=== PATIENT | female | born 1950 | race Caucasian/White ===

== ENCOUNTER 2021-01-24 07:36 | Day surgery (SDC) | payer MEDICARE, BC ==
[2021-01-22 11:43] LABS: COVID AG,FIA SOURCE NASOPHARYNGEAL
[~2021-01-24] VITALS: Ht 165.1 cm; Wt 113.6 kg
[~2021-01-24 07:36] MED LIST: ATOR40TA28 PO; BIMA12.5OS OU; BUPR-93 PO; CELE200 PO; CHOL500013 PO; FERR236T3 PO; FEXO180T94 PO; FLUO-191 PO; KETOROLAC TROMETHAMINE 0.5% 5 ML OPHTHALMIC SOLUTION ONE; LEVO100 PO; LIFI1DRO OU; LOSA25TA21 PO; MOXIFLOXACIN HCL 0.5% 3 ML OPHTHALMIC SOLUTION ONE; OMEP20 PO; PHENYLEPHRINE HCL 2.5% 2 ML OPHTHALMIC SOLUTION ONE; RINGERS SOLUTION,LACTATED 500 ML IV ONE; TIMO.5OS OS; TRIA1CAP6 PO; TROPICAMIDE 1% 2 ML OPHTHALMIC SOLUTION ONE
[2021-01-24] MEDS ORDERED: LIDOCAINE/PF 1% 2 ML VIAL IM ONE (07:37)
[2021-01-24] MEDS ORDERED: BALANCED SALT 15 ML OPHTHALMIC IRRIG.SOLN OU ONE (07:37)
[2021-01-24] MEDS ORDERED: HYALURONATE SOD/CHONDROITIN SOD 0.5 ML VIAL IO ONE (07:37)
[2021-01-24] MEDS ORDERED: POVIDONE-IODINE 10% 15 ML SOLUTION UD TP ONE (07:37)
[2021-01-24] MEDS ORDERED: EPINEPHrine 1:1,000 [1 MG/ML] AMP IM ONE (07:37)
[2021-01-24] MEDS ORDERED: TETRACAINE HCL/PF 0.5% 4 ML OPHTHALMIC SOLUTION OU ONE (07:37)
[2021-01-24] MEDS: TROPICAMIDE 1% 2 ML OPHTHALMIC SOLUTION OD SCH ×3 (09:23→09:37)
[2021-01-24] MEDS: KETOROLAC TROMETHAMINE 0.5% 5 ML OPHTHALMIC SOLUTION OD SCH ×3 (09:23→09:37)
[2021-01-24] MEDS: MOXIFLOXACIN HCL 0.5% 3 ML OPHTHALMIC SOLUTION OD SCH ×3 (09:23→09:37)
[2021-01-24] MEDS: PHENYLEPHRINE HCL 2.5% 2 ML OPHTHALMIC SOLUTION OD SCH ×3 (09:23→09:37)
[2021-01-24] MEDS ORDERED: FentaNYL CITRATE PF 100 MCG/2 ML VIAL IVP ONE (12:00)
[2021-01-24] MEDS ORDERED: MIDAZOLAM HCL 2 MG/2 ML VIAL IVP ONE (12:00)
== END 2021-01-24 11:00 | disposition home or self-care (01) ==
LOC: SURGERY 07:36
PROVIDERS: ATTEND Ophthalmology
DX: H25.11 Age-related nuclear cataract, right eye (principal); Z20.822 Contact with and (suspected) exposure to COVID-19; I10 Essential (primary) hypertension; E03.9 Hypothyroidism, unspecified; G47.33 Obstructive sleep apnea (adult) (pediatric); E66.01 Morbid (severe) obesity due to excess calories; Z68.41 Body mass index [BMI] 40.0-44.9, adult; Z88.0 Allergy status to penicillin; Z88.8 Allergy status to other drugs, medicaments and biological substances; Z79.899 Other long term (current) drug therapy; Z79.82 Long term (current) use of aspirin
CPT/HCPCS: 66984; 87426; 93005; C9803; J0171; J2250; J3010; J3490; J7120; V2632